=== PATIENT | male | born 1995 | race African-American/Black ===

== ENCOUNTER 2016-09-09 14:53 | Emergency (ER) | payer MEDICAID ==
[~2016-09-09] VITALS: Ht 188 cm; Wt 81.0 kg
[2016-09-09 15:16] VITALS: BP 130/80
== END 2016-09-09 17:53 | disposition home or self-care (01) ==
LOC: ER 14:54
DX: L03.113 Cellulitis of right upper limb (principal); R03.0 Elevated blood-pressure reading, without diagnosis of hypertension; S50.861A Insect bite (nonvenomous) of right forearm, initial encounter; W57.XXXA Bitten or stung by nonvenomous insect and other nonvenomous arthropods, initial encounter; Y93.89 Activity, other specified; Y92.89 Other specified places as the place of occurrence of the external cause; F17.210 Nicotine dependence, cigarettes, uncomplicated; Z71.6 Tobacco abuse counseling
CPT/HCPCS: 99283

== ENCOUNTER 2016-11-20 10:30 | Emergency (ER) | payer MEDICAID ==
[~2016-11-20] VITALS: Ht 188 cm; Wt 86.0 kg
[2016-11-20 11:15] VITALS: BP 114/62
== END 2016-11-20 13:00 | disposition home or self-care (01) ==
LOC: ER 12:40
DX: R05 Cough (principal); F17.210 Nicotine dependence, cigarettes, uncomplicated; Z71.6 Tobacco abuse counseling
CPT/HCPCS: 99282

== ENCOUNTER 2016-12-22 17:27 | Emergency (ER) | payer MEDICAID, OTHER ==
[~2016-12-22] VITALS: Ht 182.9 cm; Wt 85.0 kg
[2016-12-22] MEDS ORDERED: KETOROLAC 60MG/2ML VIAL IM ONE (21:00)
[2016-12-22 21:08] VITALS: BP 128/63
== END 2016-12-22 23:00 | disposition home or self-care (01) ==
LOC: ER 21:06
DX: S62.141A Displaced fracture of body of hamate [unciform] bone, right wrist, initial encounter for closed fracture (principal); F17.200 Nicotine dependence, unspecified, uncomplicated; W22.01XA Walked into wall, initial encounter; Y93.89 Activity, other specified; Y92.89 Other specified places as the place of occurrence of the external cause; Y99.8 Other external cause status
CPT/HCPCS: 29125; 73090; 73130; 96372; 99284; J1885

== ENCOUNTER 2024-10-12 08:46 | Emergency (ER) | payer OTHER ==
[~2024-10-12] VITALS: Ht 185.4 cm; Wt 82.0 kg
[2024-10-12 08:50] VITALS: O2SAT 100
[2024-10-12 08:53] VITALS: BP 111/63; PULSE 78; RESP 16; TEMP 36.7; O2SAT 100
[2024-10-12 09:13] LABS: EOSINOPHILS % 2.7 % (0.0-5.0); HEMATOCRIT. 30.6 % (42.0-52.0); LYMPHOCYTES % 22.4 % (20.0-50.0); MEAN CORPUSCULAR HEMOGLOBIN 17.9 pg (28.0-32.0); MEAN CORPUSCULAR HGB CONC 29.4 g/dL (31.0-37.0); MEAN CORPUSCULAR VOLUME 60.8 fL (80.0-94.0); MEAN PLATELET VOLUME 6.9 fl (7.4-10.4); MONOCYTES % 11.1 % (2.0-8.0); NEUTROPHILS % 62.8 % (40.0-76.0); PLATELET 275 x1000/uL (130-400); RED BLOOD CELL COUNT 5.03 mill/uL (4.7-6.1); RED CELL DISTRIBUTION WIDTH 18.7 % (11.6-14.6); WHITE BLOOD COUNT 5.5 x1000/uL (4.5-11.0)
[2024-10-12 09:17] LABS: ADD RBC MORPHOLOGY YES; DIFFERENTIAL COMMENT 1
[2024-10-12 09:19] LABS: CHLORIDE 108 mEq/L (98-107); POTASSIUM 4.5 mEq/L (3.5-5.1); SODIUM 140 mEq/L (136-145)
[2024-10-12 09:20] LABS: CALCIUM 9.3 mg/dL (8.7-10.4); CARBON DIOXIDE 27 mEq/L (21-32)
[2024-10-12 09:25] LABS: CLARITY URINE CLEAR (CLEAR); COLOR URINE YELLOW (YELLOW); GLUCOSE URINE NEGATIVE (NEGATIVE); KETONES URINE NEGATIVE (NEGATIVE); LEUKOCYTE ESTERASE URINE NEGATIVE (NEGATIVE); NITRITE URINE NEGATIVE (NEGATIVE); OCCULT BLOOD URINE NEGATIVE (NEGATIVE); PH URINE 5.5 (4.5-8.0); PROTEIN URINE NEGATIVE (NEGATIVE); SPECIFIC GRAVITY URINE 1.021 (1.005-1.030)
[2024-10-12 09:25] LABS: CREATININE 0.8 mg/dL (0.6-1.3); GLUCOSE 96 mg/dL (70-105); UREA NITROGEN BLOOD 10 mg/dL (9-23)
[2024-10-12 09:26] LABS: ETHANOL BLOOD < 10 mg/dL (<10)
[2024-10-12] MEDS: FOLIC ACID 1MG TABLET PO SCH (09:42)
[2024-10-12 09:43] LABS: *AMPHETAMINES SCREEN URINE NEGATIVE (NEGATIVE); *BARBITURATES SCREEN URINE NEGATIVE (NEGATIVE); *BENZODIAZEPINES SCREEN URINE NEGATIVE (NEGATIVE)
[2024-10-12] MEDS: MULTIVITAMINS,THER W-MINERALS TABLET PO SCH (09:43)
[2024-10-12 09:44] LABS: *COCAINE SCREEN URINE NEGATIVE (NEGATIVE); CANNABINOID URINE SCREEN PRESUMPTIVE POSITIVE (NEGATIVE); ECSTASY MDMA SCREEN URINE NEGATIVE (NEGATIVE); METHADONE URINE SCREEN NEGATIVE (NEGATIVE); OPIATES URINE SCREEN NEGATIVE (NEGATIVE); PHENCYCLIDINE URINE SCREEN NEGATIVE (NEGATIVE)
[2024-10-12] MEDS: THIAMINE HCL 100 MG/1 ML 2ML VIAL IM SCH (09:48)
[2024-10-12 09:54] LABS: ANISOCYTOSIS 2+; HYPOCHROMASIA 2+; MICROCYTOSIS 3+; PLATELET ESTIMATE NORMAL; ROULEAUX 1+
[2024-10-15] MEDS ORDERED: THIAMINE HCL 100MG TABLET PO SCH (09:00)
== END 2024-10-12 10:50 | disposition home or self-care (01) ==
LOC: ER 08:46
DX: F10.10 Alcohol abuse, uncomplicated (principal); F14.10 Cocaine abuse, uncomplicated; Z79.899 Other long term (current) drug therapy; Z02.79 Encounter for issue of other medical certificate
CPT/HCPCS: 80305; 80048; 81003; 80320; 85025; 36415; 96372; 99283; J3411; G0480